=== PATIENT | female | born 1985 | race Caucasian/White ===

== ENCOUNTER 2017-01-03 00:21 | Inpatient (IN) | payer BC ==
[2017-01-03] MEDS ORDERED: Nalbuphine 10 MG/1 ML Vial IVPUSH PRN (01:07)
[2017-01-03] MEDS ORDERED: Sodium Chloride 0.9% 10 ML Syringe FLUSH PRN ×2 (01:07→12:24)
[2017-01-03] MEDS ORDERED: Acetaminophen 325 MG Tab PO PRN (01:07)
[2017-01-03] MEDS ORDERED: Lidocaine 1% 30 ML SDV INJECT PRN (01:07)
[2017-01-03] MEDS ORDERED: Misoprostol 400 MCG (4 X 100 MCG TAB) RECTAL PRN (01:07)
[2017-01-03] MEDS ORDERED: Carboprost Tromethamine 250 MCG/1 ML Amp IM PRN (01:07)
[2017-01-03] MEDS ORDERED: Lactated Ringers 500 ML IV ONE (01:07)
[2017-01-03] MEDS ORDERED: fentaNYL 100 MCG/2 ML SDV IVPUSH PRN (01:07)
[2017-01-03] MEDS ORDERED: Methylergonovine 0.2 MG/1 ML Amp IM PRN (01:07)
[2017-01-03] MEDS ORDERED: Oxytocin/Normal Saline 30 UNIT/500 ML BAG IV SCH (01:15)
--- NOTE | 2017-01-03 01:16 | PCM.LDHP ---
L&D History of Present Illness - General Date of Service: 01/03/17 Admit Problem/Dx: Patient Status Order with Admit Dx/Problem 01/03/17 01:07 Patient Status [ADT] Routine Admission Diagnosis/Problem Admission Diagnosis/Problem care Source of Information: Patient History Limitations: Reports: No Limitations - History of Present Illness Introduction:: 31-year-old at 40w5d presents with contractions since 1630 yesterday. They have gradually become stronger and more intense. She is breathing through her contractions, and they are 3-5 minutes apart currently. She has had some blood- tinged mucus discharge but no vaginal bleeding. No leaking of fluid. Baby has been active. Her has been uncomplicated. - Related Data Allergies/Adverse Reactions: Allergies Allergy/AdvReac Type Severity Reaction Status Date / Time Sulfa (Sulfonamide Allergy Anaphylactic Verified 06/20/14 12:55 Antibiotics) Shock Home Medications: Home Meds PNV95/Ferrous Fumarate/FA [ Tablet] 06/21/14 [History] Acetaminophen [Tylenol] 650 mg PO Q6H PRN #60 tablet 06/24/14 [Rx] Docusate Sodium [Colace] 100 mg PO BID PRN #60 cap 06/24/14 [Rx] Ibuprofen 800 mg PO Q8H PRN #30 tablet 06/24/14 [Rx] Past Medical History - Infectious Disease History Infectious Disease History: Reports: Chicken Pox - Past Surgical History HEENT Surgical History: Reports: Myringotomy w Tube(s), Oral Surgery ([place] teeth extraction) Social & Family History - Tobacco Use Smoking Status *Q: Never Smoker - Alcohol Use Days Per Week of Alcohol Use: 0 - Recreational Drug Use Recreational Drug Use: No H&P Review of Systems - Review of Systems: Review Of Systems: See Below General: Reports: No Symptoms HEENT: Reports: No Symptoms Pulmonary: Reports: No Symptoms Cardiovascular: Reports: No Symptoms Gastrointestinal: Reports: No Symptoms Genitourinary: Reports: No Symptoms Musculoskeletal: Reports: No Symptoms Skin: Reports: No Symptoms Psychiatric: Reports: No Symptoms L&D Exam - Exam Exam: See Below - OB Specific Contraction Frequency (min): 1-4 Contraction Intensity: Moderate Movement: Active Heart Tones: Present Heart Tones per Min: 135 Heart Rate (FHR) Variability: Moderate (6-25 bmp) Presentation: Vertex - Olsen Score Olsen Score Effacement: >80% Olsen Score Dilation: 3-4 cm Olsen Score Infant's Station: -2 - Exam General: Alert, Oriented HEENT: Conjunctiva Clear, Mucosa Moist & [place] Lungs: Clear to Auscultation, Normal Respiratory Effort Cardiovascular: Regular Rate, Regular Rhythm. No: Systolic Murmur, Diastolic Murmur Extremities: Edema (Trace to lower extremities bilaterally) Skin: Warm, Dry, Intact - Problem List (1) Active labor at term SNOMED Code(s): 87478825 ICD Code: [id number] - Status: Acute Current Visit: Yes (2) Normal SNOMED Code(s): 49564527 ICD Code: Z34.90 - ENCNTR FOR SUPRVSN OF NORMAL , UNSP, UNSP TRIMESTER Status: Acute Current Visit: No Problem List Initiated/Reviewed/Updated: Yes Orders Last 24hrs: Active Orders 24 hr Category Date Time Status Patient Status [ADT] Routine ADT 01/03/17 01:07 Ordered Communication Order [RC] ASDIRECTED Care 01/03/17 01:07 Ordered Heart Tones [RC] PER UNIT ROUTINE Care 01/03/17 01:07 Ordered Notify Provider Vital Signs OB [RC] ASDIRECTED Care 01/03/17 01:07 Ordered Notify Provider [RC] PRN Care 01/03/17 01:07 Ordered Pump Management, Intrathecal [RC] ASDIRECTED Care 01/03/17 01:07 Ordered Up ad Monica [RC] ASDIRECTED Care 01/03/17 01:07 Ordered Vital Signs [RC] PER UNIT ROUTINE Care 01/03/17 01:07 Ordered Clear Liquid Diet [DIET] Diet 01/03/17 Breakfast Ordered ALANINE AMINOTRANSFERASE,ALT [CHEM] Stat Lab 01/03/17 00:54 Ordered ASPARTATE AMNIOTRANSFERASE,AST [CHEM] Stat Lab 01/03/17 00:54 Ordered BLOOD UREA NITROGEN,BUN [CHEM] Stat Lab 01/03/17 00:54 Ordered CBC W/O DIFF,HEMOGRAM [HEME] Routine Lab 01/03/17 00:54 Ordered CBC WITH AUTO DIFF [HEME] Stat Lab 01/03/17 00:54 Ordered LACTATE DEHYDROGENASE,LDH [CHEM] Stat Lab 01/03/17 00:54 Ordered URIC ACID [CHEM] Stat Lab 01/03/17 00:54 Ordered Acetaminophen [Tylenol] Med 01/03/17 01:07 Ordered 650 mg PO Q4H PRN Carboprost Tromethamine [Hemabate DS] Med 01/03/17 01:07 Ordered 250 mcg IM ASDIRECTED PRN Lactated Ringers @ 125 MLS/HR(1000ml) Med 01/03/17 01:15 Ordered Lactated Ringers [Ringers, Lactated] 1,000 ml IV ASDIRECTED Lactated Ringers [Ringers, Lactated] 500 ml Med 01/03/17 01:07 Ordered IV .BOLUS Lidocaine 1% [Xylocaine-MPF 1%] Med 01/03/17 01:07 Ordered 10 ml INJECT ASDIRECTED PRN Methylergonovine [Methergine] Med 01/03/17 01:07 Ordered 0.2 mg IM ASDIRECTED PRN Misoprostol [Cytotec] Med 01/03/17 01:07 Ordered 800 mcg RECTAL ASDIRECTED PRN Nalbuphine [Nubain] Med 01/03/17 01:07 Ordered 10 mg IVPUSH Q3H PRN Ondansetron [Zofran] Med 01/03/17 01:07 Ordered 4 mg IV Q4H PRN Oxytocin 30 Units in NS @ 2 MUNITS/MIN(500ml) Med 01/03/17 01:15 Ordered Oxytocin/Normal Saline [Pitocin in NS 30 UNIT/500 ML] 30 unit in 500 ml IV TITRATE Sodium Chloride 0.9% [Saline Flush] Med 01/03/17 01:07 Ordered 10 ml FLUSH ASDIRECTED PRN fentaNYL [Sublimaze] Med 01/03/17 01:07 Ordered 50 mcg IVPUSH Q1H PRN PIH Panel [OM.PC] Urgent Oth 01/03/17 00:54 Ordered Saline Lock Insert [OM.PC] Routine Oth 01/03/17 01:07 Ordered Resuscitation Status Routine Resus Stat 01/03/17 01:07 Ordered Medication Orders Acetaminophen (Tylenol) 650 mg PO Q4H PRN PRN Reason: Pain (Mild 1-3) and fever Carboprost Tromethamine (Hemabate Ds) 250 mcg IM ASDIRECTED PRN PRN Reason: HEMORRHAGE Lactated Ringer's (Ringers, Lactated) 500 mls @ 999 mls/hr IV .BOLUS ONE Stop: 01/03/17 01:37 Lactated Ringer's (Ringers, Lactated) 1,000 mls @ 125 mls/hr IV ASDIRECTED BRYNN Lidocaine HCl (Xylocaine-Mpf 1%) 10 ml INJECT ASDIRECTED PRN PRN Reason: Perineal Repair Methylergonovine Maleate (Methergine) 0.2 mg IM ASDIRECTED PRN PRN Reason: Hemorrhage Assessment/Plan Comment:: 31-year-old at 40w5d in active labor --Elevated blood pressures 1. Admit to Labor & Delivery 2. Initiate routine intrapartum labs 3. Will obtain PIH labs for elevated pressures 4. Patient does desire intrathecal 5. Expectant management. Anticipate Jennifer Sands MD
[2017-01-03] MEDS ORDERED: fentaNYL 100 MCG/2 ML SDV ONE ×2 (04:45→08:56)
[2017-01-03] MEDS: Ondansetron 4 MG/2 ML SDV IV PRN ×2 (04:49→08:43)
[2017-01-03] MEDS ORDERED: fentaNYL 100 MCG/2 ML SDV ITHECAL ONE ×2 (05:00→09:15)
--- NOTE | 2017-01-03 05:08 | PCM.PREANE ---
Preanesthetic Assessment - Procedure Proposed Procedure: Intrathecal Narcotics for Labor pain - Anesthesia/Transfusion/Family Hx Anesthesia History: Prior Anesthesia Without Reaction Family History of Anesthesia Reaction: No Transfusion History: No Prior Transfusion(s) Intubation History: Unknown - Review of Systems General: No Symptoms Pulmonary: No Symptoms Cardiovascular: No Symptoms Gastrointestinal: No symptoms Neurological: No Symptoms Other: Reports: None - Physical Assessment NPO Status Date: 01/03/17 NPO Status Time: 00:00 Pulse: 78 O2 Sat by Pulse Oximetry: 99 Respiratory Rate: 20 Blood Pressure: 103/60 Temperature: 97.8 F ASA Class: 2 Mental Status: Alert & Oriented x3 Dentition: Reports: Normal Dentition ROM/Head Extension: Full Lungs: Clear to auscultation, Normal respiratory effort Cardiovascular: Regular Rate, Regular Rhythm - Lab Values: Laboratory Last Values WBC 10.4 10^3/uL (5.0-10.0) H 01/03/17 01:05 RBC 4.43 10^6/uL (4.2-5.4) 01/03/17 01:05 Hgb 12.7 g/dL (12.0-16.0) 01/03/17 01:05 Hct 39.0 % (37.0-47.0) 01/03/17 01:05 MCV 88.0 fL (80-100) 01/03/17 01:05 MCH 28.7 pg (27.0-34.0) 01/03/17 01:05 MCHC 32.6 g/dL (33.0-35.0) L 01/03/17 01:05 Plt Count 185 10^3/uL (150-450) 01/03/17 01:05 BUN 10 mg/dL (7-18) 01/03/17 01:05 Uric Acid 5.6 mg/dL (2.6-7.2) 01/03/17 01:05 AST 19 IU/L (10-42) 01/03/17 01:05 ALT 13 IU/L (10-60) 01/03/17 01:05 Lactate Dehydrogenase 163 IU/L (91-180) 01/03/17 01:05 - Allergies Allergies/Adverse Reactions: Allergies Allergy/AdvReac Type Severity Reaction Status Date / Time Sulfa (Sulfonamide Allergy Anaphylactic Verified 06/20/14 12:55 Antibiotics) Shock - Blood Blood Available: No Product(s) Available: None - Anesthesia Plan Pre-Op Medication Ordered: None - Acknowledgements Anesthesia Type Planned: Spinal Pt an Appropriate Candidate for the Planned Anesthesia: Yes Alternatives and Risks of Anesthesia Discussed w Pt/Guardian: Yes Pt/Guardian Understands and Agrees with Anesthesia Plan: Yes Additional Comments: R/B of Intrathecal Narcotics for Labor pain discussed and agreed to by patient consent is signed PreAnesthesia Questionnaire - Infectious Disease History Infectious Disease History: Reports: Chicken Pox - Past Surgical History HEENT Surgical History: Reports: Myringotomy w Tube(s), Oral Surgery ([place] teeth extraction) - SUBSTANCE USE Smoking Status *Q: Never Smoker Days Per Week of Alcohol Use: 0 Recreational Drug Use History: No - HOME MEDS Home Medications: Home Meds PNV95/Ferrous Fumarate/FA [ Tablet] 06/21/14 [History] Acetaminophen [Tylenol] 650 mg PO Q6H PRN #60 tablet 06/24/14 [Rx] Docusate Sodium [Colace] 100 mg PO BID PRN #60 cap 06/24/14 [Rx] Ibuprofen 800 mg PO Q8H PRN #30 tablet 06/24/14 [Rx] - CURRENT (IN HOUSE) MEDS Current Meds: Current Medications Acetaminophen (Tylenol) 650 mg PO Q4H PRN PRN Reason: Pain (Mild 1-3) and fever Carboprost Tromethamine (Hemabate Ds) 250 mcg IM ASDIRECTED PRN PRN Reason: HEMORRHAGE Fentanyl (Sublimaze) 50 mcg IVPUSH Q1H PRN PRN Reason: Pain (moderate 4-6) Lactated Ringer's (Ringers, Lactated) 1,000 mls @ 125 mls/hr IV ASDIRECTED BRYNN Oxytocin/Sodium Chloride (Pitocin In Ns 30 Unit/500 Ml) 30 unit in 500 mls @ 2 mls/hr IV TITRATE BRYNN; 2 MUNITS/MIN PRN Reason: Protocol Lidocaine HCl (Xylocaine-Mpf 1%) 10 ml INJECT ASDIRECTED PRN PRN Reason: Perineal Repair Methylergonovine Maleate (Methergine) 0.2 mg IM ASDIRECTED PRN PRN Reason: Hemorrhage Misoprostol (Cytotec) 800 mcg RECTAL ASDIRECTED PRN PRN Reason: Hemorrhage Nalbuphine HCl (Nubain) 10 mg IVPUSH Q3H PRN PRN Reason: Pain (moderate 4-6) Last Admin: 01/03/17 01:39 Dose: 10 mg Ondansetron HCl (Zofran) 4 mg IV Q4H PRN PRN Reason: Nausea/Vomiting Sodium Chloride (Saline Flush) 10 ml FLUSH ASDIRECTED PRN PRN Reason: Keep Vein Open Discontinued Medications Fentanyl (Sublimaze) Confirm Administered Dose 100 mcg .ROUTE .STK-MED ONE Stop: 01/03/17 04:46 Lactated Ringer's (Ringers, Lactated) 500 mls @ 999 mls/hr IV .BOLUS ONE Stop: 01/03/17 01:37 Sufentanil Citrate (Sufenta) Confirm Administered Dose 50 mcg .ROUTE .STK-MED ONE Stop: 01/03/17 04:46
--- NOTE | 2017-01-03 05:10 | PCM.PRNOTE ---
- Free Text/Narrative Note: Chart Reviewed, Patient ID'd, Risk Benefit of spinal narcotic for labor pain is discussed and agreed to by patient. Consent signed. Preloaded with 1 liter of LR. Baseline VS is obtained. In sitting position L 4-5 inner space is ID'd. Skin wheel and space infiltration with 1% lidocaine. 24 G pencan spinal needle is introduced into via 18 G introducer needle into SA space. No Paresthesia, No Blood, Positive CSF. 6 mg Hyperbaric Marcaine, 20 mcg sufentanyl, 30 mcg fentanyl, epinepherine wash and 1 ml preservative free normal saline injected after positive swirl of CSFx2. VSS Dermatone level is T8 Bilateral and immediate labor pain relieve reported by patient.
[2017-01-03] MEDS: Lactated Ringers 1,000 ML IV SCH ×3 (05:20→09:16)
--- NOTE | 2017-01-03 09:19 | PCM.PRNOTE ---
- Free Text/Narrative Note: Repeat Intathecal Narctotic. Baseline VS is obtained. In sitting position L 4 -5 inner space is ID'd. Skin wheel and space infiltration with 1% lidocaine. 24 G pencan spinal needle is introduced into via 18 G introducer needle into SA space. No Paresthesia, No Blood, Positive CSF. 6 mg Hyperbaric Marcaine, 20 mcg sufentanyl, 30 mcg fentanyl, epinepherine wash and 1 ml preservative free normal saline injected after positive swirl of CSFx2. VSS Dermatone level is T8 Bilateral and immediate labor pain relieve reported by patient.
[2017-01-03] MEDS ORDERED: Calcium Carbonate 500 MG Tab.Chew PO PRN (10:19)
[2017-01-03] MEDS ORDERED: Oxytocin 10 Units/1 ML SDV IM PRN (12:24)
[2017-01-03] MEDS ORDERED: Simethicone 80 MG Tab.Chew PO PRN (12:24)
[2017-01-03] MEDS ORDERED: Benzocaine/Menthol 20%-0.5% Spray 56 GM Canister TOP PRN (12:24)
--- NOTE | 2017-01-03 12:26 | PCM.DEL ---
[id number] - Delivery Note Labor: spontaneous, augmented by ARM Delivery Outcome: Livebirth Infant Delivery Method: Spontaneous Vaginal Delivery Presentation: Vertex Nuchal Cord: None Anesthesia Type: Intrathecal Amniotic Fluid Description: Clear Episiotomy Type: None Laceration: 2nd degree, perineal Suture type: vicryl Suture size: 3-0 Placenta: intact, spontaneous Cord: 3 vessels Estimated Blood Loss: 175 [place]: Bulb Syringe, Stimulated, Warmed Provider: Jennifer Sands Score 1 min: 6 Score 5 min: 8 Delivery Comments (Free Text/Narrative):: 31-year-old, now at 40 weeks 5 days gestation presented to labor and delivery in active labor. She was in labor for about 18 hours prior to normal spontaneous vaginal delivery. AROM was performed to augment labor. Patient did receive intrathecal anesthesia 2. Patient pushed for approximately 25 minutes after progressing to complete dilation. She did labor down for a time until she felt the urge to push. After 25 minutes of pushing, a viable male was born with Apgars of 6 and 8 at one and 5 minutes respectively. Patient's placenta delivered a short time later. It appeared to be intact. Patient initially had a small amount of bleeding which resolved with the start of Pitocin and bimanual massage. A second-degree perineal laceration was repaired in standard fashion using 3-0 Vicryl suture. After completion of the repair, uterus is noted to be firm, and bleeding was appropriate. There were no immediate complications, and patient tolerated the procedure well. - Patient Data Vitals - most recent: Last Vital Signs Temp 36.9 C 01/03/17 09:00 Pulse 102 H 01/03/17 11:10 Resp 16 01/03/17 11:10 BP 103/73 01/03/17 11:10 Pulse Ox 100 01/03/17 10:05 Weight - most recent: 100.698 kg I&O - last 24 hours: Intake & Output 01/02/17 01/03/17 01/03/17 22:59 06:59 14:59 Intake Total 1999 Output Total 225 Balance 1775 Lab Results last 24 hrs: Laboratory Results - last 24 hr 01/03/17 01/03/17 Range/Units 01:05 01:05 WBC 10.4 H (5.0-10.0) 10^3/uL RBC 4.43 (4.2-5.4) 10^6/uL Hgb 12.7 (12.0-16.0) g/dL Hct 39.0 (37.0-47.0) % MCV 88.0 (80-100) fL MCH 28.7 (27.0-34.0) pg MCHC 32.6 L (33.0-35.0) g/dL Plt Count 185 (150-450) 10^3/uL BUN 10 (7-18) mg/dL Uric Acid 5.6 (2.6-7.2) mg/dL AST 19 (10-42) IU/L ALT 13 (10-60) IU/L Lactate Dehydrogenase 163 (91-180) IU/L Med Orders - Current: Current Medications Acetaminophen (Tylenol) 650 mg PO Q4H PRN PRN Reason: Pain (Mild 1-3) and fever Calcium Carbonate/Glycine (Tums) 1,000 mg PO Q2H PRN PRN Reason: Heartburn Last Admin: 01/03/17 11:05 Dose: 1,000 mg Carboprost Tromethamine (Hemabate Ds) 250 mcg IM ASDIRECTED PRN PRN Reason: HEMORRHAGE Lactated Ringer's (Ringers, Lactated) 1,000 mls @ 125 mls/hr IV ASDIRECTED BRYNN Last Admin: 01/03/17 09:16 Dose: 125 mls/hr Oxytocin/Sodium Chloride (Pitocin In Ns 30 Unit/500 Ml) 30 unit in 500 mls @ 2 mls/hr IV TITRATE BRYNN; 2 MUNITS/MIN PRN Reason: Protocol Last Titration: 01/03/17 11:47 Dose: 500 mls/hr Methylergonovine Maleate (Methergine) 0.2 mg IM ASDIRECTED PRN PRN Reason: Hemorrhage Misoprostol (Cytotec) 800 mcg RECTAL ASDIRECTED PRN PRN Reason: Hemorrhage Ondansetron HCl (Zofran) 4 mg IV Q4H PRN PRN Reason: Nausea/Vomiting Last Admin: 01/03/17 08:43 Dose: 4 mg Sodium Chloride (Saline Flush) 10 ml FLUSH ASDIRECTED PRN PRN Reason: Keep Vein Open Discontinued Medications Fentanyl (Sublimaze) 50 mcg IVPUSH Q1H PRN PRN Reason: Pain (moderate 4-6) Fentanyl (Sublimaze) Confirm Administered Dose 100 mcg .ROUTE .STK-MED ONE Stop: 01/03/17 04:46 Last Admin: 01/03/17 08:42 Dose: Not Given Fentanyl (Sublimaze) Confirm Administered Dose 100 mcg .ROUTE .STK-MED ONE Stop: 01/03/17 08:57 Lactated Ringer's (Ringers, Lactated) 500 mls @ 999 mls/hr IV .BOLUS ONE Stop: 01/03/17 01:37 Last Admin: 01/03/17 04:40 Dose: 999 mls/hr Lidocaine HCl (Xylocaine-Mpf 1%) 10 ml INJECT ASDIRECTED PRN PRN Reason: Perineal Repair Nalbuphine HCl (Nubain) 10 mg IVPUSH Q3H PRN PRN Reason: Pain (moderate 4-6) Last Admin: 01/03/17 01:39 Dose: 10 mg Sufentanil Citrate (Sufenta) Confirm Administered Dose 50 mcg .ROUTE .STK-MED ONE Stop: 01/03/17 04:46 Last Admin: 01/03/17 08:43 Dose: Not Given Sufentanil Citrate (Sufenta) Confirm Administered Dose 50 mcg .ROUTE .STK-MED ONE Stop: 01/03/17 08:57 - Problem List & Annotations (1) Active labor at term SNOMED Code(s): 23182450 Code(s): IVO1132 - Status: Acute (2) Normal SNOMED Code(s): 37809625 Code(s): Z34.90 - ENCNTR FOR SUPRVSN OF NORMAL , UNSP, UNSP TRIMESTER Status: Acute (3) Normal spontaneous vaginal delivery SNOMED Code(s): 72286443 Code(s): O80 - ENCOUNTER FOR FULL-TERM UNCOMPLICATED DELIVERY Status: Acute (4) Perineal laceration during delivery, delivered SNOMED Code(s): 517308669 Code(s): O70.9 - PERINEAL LACERATION DURING DELIVERY, UNSPECIFIED Status: Acute - Problem List Review Problem List Initiated/Reviewed/Updated: Yes - My Orders Last 24 Hours: My Active Orders 01/03/17 01:07 Patient Status [ADT] Routine Notify Provider Vital Signs OB [RC] ASDIRECTED Vital Signs [RC] PER UNIT ROUTINE Acetaminophen [Tylenol] 650 mg PO Q4H PRN Carboprost Tromethamine [Hemabate DS] 250 mcg IM ASDIRECTED PRN Methylergonovine [Methergine] 0.2 mg IM ASDIRECTED PRN Misoprostol [Cytotec] 800 mcg RECTAL ASDIRECTED PRN Ondansetron [Zofran] 4 mg IV Q4H PRN Sodium Chloride 0.9% [Saline Flush] 10 ml FLUSH ASDIRECTED PRN Saline Lock Insert [OM.PC] Routine Resuscitation Status Routine 01/03/17 01:15 Lactated Ringers [Ringers, Lactated] 1,000 ml IV ASDIRECTED Oxytocin/Normal Saline [Pitocin in NS 30 UNIT/500 ML] 30 unit in 500 ml IV TITRATE 01/03/17 10:19 Calcium Carbonate [Tums] 1,000 mg PO Q2H PRN 01/03/17 12:24 Up ad Monica [RC] ASDIRECTED Vital Signs [RC] PFP Consult to Director [employer] [CONS] Routine Benzocaine/Menthol [Dermoplast Pain Relief [place]] See Dose Instructions TOP Q4H PRN Docusate Sodium [Colace] 100 mg PO BID PRN Ibuprofen [Motrin] 800 mg PO Q8H PRN Oxytocin [Pitocin] 10 unit IM ONETIME PRN Simethicone 80 mg PO Q4H PRN Sodium Chloride 0.9% [Saline Flush] 10 ml FLUSH ASDIRECTED PRN Assess Lochia [WOMSER] Per Unit Routine Assess Uterine Involution [WOMSER] Per Unit Routine Breast Pump [WOMSER] Per Unit Routine Ice Therapy [OM.PC] Per Unit Routine Perineal Care [OM.PC] Per Unit Routine Saline Lock Insert [OM.PC] Urgent Sitz Bath [OM.PC] Per Unit Routine 01/03/17 Lunch Regular Diet [DIET] 01/04/17 09:00 Vit with Ca/FA/Iron [ Plus Iron] 1 each PO DAILY - Assessment Assessment:: 31-year-old now , status post normal spontaneous vaginal delivery at 40 weeks 5 days gestation - Plan Plan:: 1. Initiate routine orders. 2. Patient does desire to breast-feed. 3. Anticipate discharge 01/05/2017. Dr. Dickens will resume care of the patient tomorrow morning. Jennifer Sands MD
--- NOTE | 2017-01-03 17:25 | PCM.POSTAN ---
POST ANESTHESIA ASSESSMENT - MENTAL STATUS Mental Status: alert, oriented - VITAL SIGNS Pulse Rate: 81 SaO2: 100 Resp Rate: 19 Blood Pressure: 131/69 - RESPIRATORY Respiratory Status: respiratory rate WNL, airway patent, O2 saturation stable - CARDIOVASCULAR CV Status: pulse rate WNL, blood pressure stable - GASTROINTESTINAL GI Status: no symptoms - POST OP HYDRATION Hydration Status: adequate & stable - OBSERVATIONS Free Text/Narrative:: Regained full functions of her lower extremities. Ambulated without any issues. Delivered her baby with reasonable pain control. Pleased with the results of Intrathecal Narcotics.
[2017-01-03] MEDS: Ibuprofen 800 MG Tab PO PRN (20:04)
[2017-01-03] MEDS: Docusate Sodium 100 MG Cap PO PRN (20:05)
[2017-01-03] MEDS: Acetaminophen/HYDROcodone 325-10 MG Tab PO PRN (23:11)
[2017-01-04] MEDS: Ibuprofen 800 MG Tab PO PRN ×2 (04:51→14:57)
[2017-01-04] MEDS: Acetaminophen/HYDROcodone 325-10 MG Tab PO PRN (05:50)
[2017-01-04 07:58] VITALS: BP 106/62
[2017-01-04] MEDS: Docusate Sodium 100 MG Cap PO PRN (08:47)
[2017-01-04] MEDS ORDERED: Prenatal Multivitamin with Calcium/Folic Acid/Iron Tab PO SCH (09:00)
--- NOTE | 2017-01-05 08:47 | DISCH ---
ADMITTING DIAGNOSES: 1. 2, para 1-0-0-1. 2. A 40 and 5/7th weeks' gestation. 3. Heartburn of . DISCHARGE DIAGNOSES: 1. 2, now para 2-0-0-2. 2. A 40 and 5/7th weeks' gestation. 3. Heartburn of . 4. Status post spontaneous vaginal delivery with second-degree repair. 5. Transient hypertension with negative PIH labs, maximum of 153/99. BRIEF HISTORY: A 31-year-old female, admitted to the hospital with onset of spontaneous labor and was in stage I for approximately 18 hours without complications until she went on to about an hour of pushing, and had a successful uncomplicated vaginal delivery with second-degree laceration repair. See Dr. Sands's admission history and physical and delivery note for full details. HOSPITAL COURSE: Good. She has been ambulating, tolerating regular diet. is going well. Not having any symptoms of preeclampsia. No symptoms of severe anemia and blood loss has been mild. No other concerns or problems have arisen. LABORATORY DATA: Admission hemoglobin was 12.7. PIH labs were negative. DISCHARGE CONDITION: Good. PHYSICAL EXAMINATION: Vital Signs: Temperature is 97.6, pulse 67, blood pressure 106/62, respiratory rate of 16. Heart: Regular without murmur. Lungs: Clear bilaterally. Abdomen: Soft, nontender. Fundus firm and at the umbilicus. Mild abdominal distention noted. Extremities: Trace edema. No erythema or tenderness noted. DISPOSITION: Home with family. FOLLOWUP: A 6-week exam anticipate. DISCHARGE INSTRUCTIONS: The patient knows to come in if she has any fever, chills, foul-smelling drainage, discharge, increase in bleeding, increased abdominal pain, or any other concerning symptoms. DISCHARGE MEDICATIONS: [id number] Tylenol and ibuprofen as needed for pain. I also did write for #15 tablets of [place] 5/325 mg, if needed for pain as the ibuprofen was reported to be not doing very much for her. She has verbalized understanding, her questions were answered. [facility] /[id number]
== END 2017-01-04 15:10 | disposition home or self-care (01) | DRG 560 ==
LOC: DL.OBCHECK 00:21 → DL.OB 00:53 → OBSVTOIN 11:44 → DL.OB 11:44
PROVIDERS: ADMIT Family Medicine; ATTEND Family Medicine
PROC: 10E0XZZ Delivery of Products of Conception, External Approach (ICD-10-PCS; principal; 2017-01-03)
PROC: 0KQM0ZZ Repair Perineum Muscle, Open Approach (ICD-10-PCS; 2017-01-03)
PROC: 00HU33Z Insertion of Infusion Device into Spinal Canal, Percutaneous Approach (ICD-10-PCS; 2017-01-03)
DX: O70.1 Second degree perineal laceration during delivery (principal); O71.89 Other specified obstetric trauma; Z3A.40 40 weeks gestation of pregnancy; Z37.0 Single live birth; R03.0 Elevated blood-pressure reading, without diagnosis of hypertension
CPT/HCPCS: 36415; 51701; 83615; 84450; 84460; 84520; 84550; 85027; A9270-GY; J2300; J2405; J2590; J3010; J7120

== ENCOUNTER 2020-07-23 15:22 | Emergency (ER) | payer BC ==
[2020-07-23] MEDS ORDERED: Sodium Chloride 0.9% 10 ML Syringe FLUSH PRN (15:28)
--- NOTE | 2020-07-23 15:48 | EDM.PDOC ---
<Pura Somers - Last Filed: 07/23/20 17:37> ED HPI GENERAL MEDICAL PROBLEM - General Chief Complaint: Chest Pain Stated Complaint: CHEST PAIN Time Seen by Provider: 07/23/20 15:30 Source of Information: Reports: Patient, RN, RN Notes Reviewed History Limitations: Reports: No Limitations - History of Present Illness INITIAL COMMENTS - FREE TEXT/NARRATIVE: 34 year old female with prior COVID infection in April presents to the ED with c/o of chest pain/pressure for about one month. states in the past "few days" she has had difficulty taking a deep breath. rates pain 7/10 when it is at its worst, rates it a 4/10 at this time. states she felt that it was related to anxiety, but when she felt SOB and her heart pounding, she felt that she s hould be evaluated. reports some nausea that comes and goes with these episodes, but none at this time. denies concerns or complications from her COVID infection. states hey symptoms were primarily fever, fatigue and loss of taste/smell, no associated respiratory concerns. denies . denies other illness or complaints. denies need for pain or nausea medication at this time. Onset: Gradual - Related Data Allergies Allergy/AdvReac Type Severity Reaction Status Date / Time Sulfa (Sulfonamide Allergy Anaphylactic Verified 01/03/17 05:59 Antibiotics) Shock Past Medical History - Past Health History Medical/Surgical History: Denies Medical/Surgical History - Infectious Disease History Infectious Disease History: Reports: Chicken Pox - Past Surgical History HEENT Surgical History: Reports: Myringotomy w Tube(s), Oral Surgery ([place] teeth extraction) Social & Family History - Family History Family Medical History: No Pertinent Family History - Caffeine Use Caffeine Use: Reports: None ED ROS GENERAL - Review of Systems Review Of Systems: Comprehensive ROS is negative, except as noted in HPI. ED EXAM, GENERAL - Physical Exam Exam: See Below Exam Limited By: No Limitations General Appearance: Alert, WD/WN, No Apparent Distress Eye Exam: Bilateral Eye: EOMI, Normal Inspection Ears: Normal External Exam, Hearing Grossly Normal Nose: Normal Inspection Throat/Mouth: Normal Inspection Head: Atraumatic, Normocephalic Neck: Normal Inspection, Supple, Non-Tender, Full Range of Motion Respiratory/Chest: No Respiratory Distress, Lungs Clear, Normal Breath Sounds. No: Accessory Muscle Use Cardiovascular: Normal Peripheral Pulses, Regular Rate, Rhythm, No Edema, No Murmur GI/Abdominal: Normal Bowel Sounds, Soft, Non-Tender (Female) Exam: Deferred Rectal (Female) Exam: Deferred Back Exam: Normal Inspection, Full Range of Motion Extremities: Normal Inspection, Normal Range of Motion Neurological: Alert, Oriented, Normal Cognition, Normal Gait Psychiatric: Normal Affect, Normal Mood Skin Exam: Warm, Dry, Intact, Normal Color Lymphatic: No Adenopathy Course - Radiology Interpretation Free Text/Narrative:: PROCEDURE INFORMATION: Exam: XR Chest, 2 Views Exam date and time: 07/23/2020 4:50 PM Age: 34 years old Clinical indication: Shortness of breath; Chest pain; Additional info: Chest pain/sob TECHNIQUE: Imaging protocol: XR of the chest Views: 2 views. COMPARISON: No relevant prior studies available. FINDINGS: Lungs: Unremarkable. No consolidation. Pleural space: Unremarkable. No pleural effusion. No pneumothorax. Heart/Mediastinum: Unremarkable. No cardiomegaly. Bones/joints: Unremarkable. IMPRESSION: No acute findings. Thank you for allowing us to participate in the care of your patient. Dictated and Authenticated by: Jamal Gleason MD 07/23/2020 5:10 PM Central Time ([place] & [place]) - Re-Assessments/Exams Free Text/Narrative Re-Assessment/Exam: 07/23/20 16:06 pts COVID infection is self-reports ad Apr 06. considering this is over 90 days prior to today, retesting is ordered. pt states she does not want to be tested and that she wasn't tested in April, but was exposed to several family members who were and was symptomatic. states she "feels fine, but will be tested if she has to." 07/23/20 16:17 pt reports has had a vasectomy. Departure - Departure Time of Disposition: 17:13 Disposition: Home, Self-Care 01 Clinical Impression: Atypical chest pain Instructions: Nonspecific Chest Pain, Adult Forms: ED Department Discharge Additional Instructions: The patient was advised of unremarkable lab and xray findings. Follow-up with your PCP for continued symptoms. Return to ER at anytime if symptoms worsen. May use tylenol as needed for pain. <Edwige Zavala - Last Filed: 07/23/20 17:54> Course - Vital Signs Last Recorded V/S: Last Vital Signs Temp 97.6 F 07/23/20 15:25 Pulse 55 L 07/23/20 15:25 Resp 18 07/23/20 15:25 BP 121/74 07/23/20 15:25 Pulse Ox 99 07/23/20 15:25 - Orders/Labs/Meds Orders: Active Orders 24 hr Category Date Time Status Saline Lock Insert [OM.PC] Routine Oth 07/23/20 15:28 Ordered Labs: Laboratory Tests 07/23/20 07/23/20 07/23/20 Range/Units 15:40 15:40 15:40 WBC 6.6 (5.0-10.0) 10^3/uL RBC 4.47 (4.2-5.4) 10^6/uL Hgb 14.2 D (12.0-16.0) g/dL Hct 41.6 (37.0-47.0) % MCV 93.1 D (80-100) fL MCH 31.8 (27.0-34.0) pg MCHC 34.1 (33.0-35.0) g/dL Plt Count 207 (150-450) 10^3/uL Neut % (Auto) 65.0 (42.2-75.2) % Lymph % (Auto) 25.6 (20.5-50.1) % Hughes % (Auto) 7.2 (2-8) % Eos % (Auto) 2.0 (1.0-3.0) % Baso % (Auto) 0.2 (0.0-1.0) % D-Dimer, Quantitative < 100 (0-400) ng/mL Sodium 141 (136-145) mmol/L Potassium 4.0 (3.5-5.1) mmol/L Chloride 102 (98-107) mmol/L Carbon Dioxide 30 (21-32) mmol/L Anion Gap 13.0 (7-13) mEq/L BUN 13 (7-18) mg/dL Creatinine 0.83 (0.55-1.02) mg/dL Est Cr Clr Drug Dosing TNP Estimated GFR (MDRD) > 60 BUN/Creatinine Ratio 15.7 (No establ ref range) Glucose 93 (74-99) mg/dL Calcium 9.1 (8.5-10.1) mg/dL Total Bilirubin 0.5 (0.2-1.0) mg/dL AST 20 (15-37) U/L ALT 30 (14-59) U/L Alkaline Phosphatase 65 (46-116) U/L Lactate Dehydrogenase (81-234) U/L Troponin I < 0.017 (0.000-0.056) ng/mL C-Reactive Protein (0.0-0.9) mg/dL Total Protein 7.4 (6.4-8.2) g/dL Albumin 4.2 (3.4-5.0) g/dL Globulin 3.2 Albumin/Globulin Ratio 1.3 07/23/20 Range/Units 15:40 WBC (5.0-10.0) 10^3/uL RBC (4.2-5.4) 10^6/uL Hgb (12.0-16.0) g/dL Hct (37.0-47.0) % MCV (80-100) fL MCH (27.0-34.0) pg MCHC (33.0-35.0) g/dL Plt Count (150-450) 10^3/uL Neut % (Auto) (42.2-75.2) % Lymph % (Auto) (20.5-50.1) % Hughes % (Auto) (2-8) % Eos % (Auto) (1.0-3.0) % Baso % (Auto) (0.0-1.0) % D-Dimer, Quantitative (0-400) ng/mL Sodium (136-145) mmol/L Potassium (3.5-5.1) mmol/L Chloride (98-107) mmol/L Carbon Dioxide (21-32) mmol/L Anion Gap (7-13) mEq/L BUN (7-18) mg/dL Creatinine (0.55-1.02) mg/dL Est Cr Clr Drug Dosing Estimated GFR (MDRD) BUN/Creatinine Ratio (No establ ref range) Glucose (74-99) mg/dL Calcium (8.5-10.1) mg/dL Total Bilirubin (0.2-1.0) mg/dL AST (15-37) U/L ALT (14-59) U/L Alkaline Phosphatase (46-116) U/L Lactate Dehydrogenase 152 (81-234) U/L Troponin I (0.000-0.056) ng/mL C-Reactive Protein 0.2 (0.0-0.9) mg/dL Total Protein (6.4-8.2) g/dL Albumin (3.4-5.0) g/dL Globulin Albumin/Globulin Ratio Meds: Medications Discontinued Medications Generic Name Dose Route Start Last Admin Trade Name Freq PRN Reason Stop Dose Admin Sodium Chloride 10 ml 07/23/20 15:28 Saline Flush FLUSH ASDIRECTED PRN Keep Vein Open - Re-Assessments/Exams Free Text/Narrative Re-Assessment/Exam: 07/23/20 17:54 I personally performed or re-performed the physical examination and medical decision making. I have verified all student documentation or findings, including history, physical exam and/or medical decision making. Sepsis Event Note (ED) - Focused Exam Vital Signs: Vital Signs Temp Pulse Resp BP Pulse Ox 07/23/20 15:25 97.6 F 55 L 18 121/74 99
[2020-07-23 16:07] LABS: CHLORIDE,CL 102 mmol/L (98-107); SODIUM,NA 141 mmol/L (136-145)
[2020-07-23 16:37] VITALS: BP 121/74; PULSE 55
--- NOTE | 2020-07-23 17:10 | CR ---
PROCEDURE INFORMATION: Exam: XR Chest, 2 Views Exam date and time: 07/23/2020 4:50 PM Age: 34 years old Clinical indication: Shortness of breath; Chest pain; Additional info: Chest pain/sob TECHNIQUE: Imaging protocol: XR of the chest Views: 2 views. COMPARISON: No relevant prior studies available. FINDINGS: Lungs: Unremarkable. No consolidation. Pleural space: Unremarkable. No pleural effusion. No pneumothorax. Heart/Mediastinum: Unremarkable. No cardiomegaly. Bones/joints: Unremarkable. IMPRESSION: No acute findings.
== END 2020-07-23 17:30 | disposition home or self-care (01) ==
LOC: DL.ED 15:22
DX: R07.89 Other chest pain (principal); Z86.19 Personal history of other infectious and parasitic diseases; Z88.2 Allergy status to sulfonamides
CPT/HCPCS: 36415; 71046; 80053; 83615; 84484; 85025; 85379; 86140; 93005; 99285-25